=== PATIENT | female | born 1960 | race Caucasian/White ===

== ENCOUNTER 2017-03-19 08:11 | Emergency (ER) | payer MEDICARE, SELFPAY ==
[2017-03-19] MEDS ORDERED: predniSONE 20 MG TAB ONE (08:24)
== END 2017-03-19 08:36 | disposition home or self-care (01) ==
LOC: BURERS 08:11
DX: J45.909 Unspecified asthma, uncomplicated (principal); F17.210 Nicotine dependence, cigarettes, uncomplicated; Z79.51 Long term (current) use of inhaled steroids
CPT/HCPCS: J7506; J7620